=== PATIENT | male | born 2000 | race Caucasian/White ===

== ENCOUNTER 2022-09-29 20:15 | Emergency (ER) | payer OTHER ==
[~2022-09-29] VITALS: Ht 170.2 cm; Wt 54.5 kg
[2022-09-29 20:21] VITALS: BP 142/89; PULSE 105; RESP 18; TEMP 98
[2022-09-29] MEDS ORDERED: CefTRIAXone SODIUM 1 GM/VIAL IM ONE (23:30)
[2022-09-29] MEDS ORDERED: LEVO-72 PO (23:30)
[2022-09-29] MEDS ORDERED: LEVOFLOXACIN 500 MG TABLET PO ONE (23:30)
[2022-09-29] MEDS ORDERED: LIDOCAINE/PF 1% 2 ML VIAL IM ONE (23:30)
== END 2022-09-29 23:56 | disposition home or self-care (01) ==
LOC: EMS 20:17
DX: J02.9 Acute pharyngitis, unspecified (principal)
CPT/HCPCS: 99283; 96372; J0696; J3490